=== PATIENT | female | born 1995 | race Caucasian/White ===

== ENCOUNTER 2016-11-18 09:28 | Emergency (ER) | payer MEDICAID ==
[~2016-11-18] VITALS: Ht 162.6 cm; Wt 56.8 kg
[2016-11-18] MEDS ORDERED: DEXAMETHASONE SOD PHOS 4 MG/ML VIAL IM ONE (11:00)
[2016-11-18 11:20] VITALS: BP 114/82
== END 2016-11-18 11:37 | disposition home or self-care (01) ==
LOC: EMS 09:33
DX: L29.9 Pruritus, unspecified (principal); L23.9 Allergic contact dermatitis, unspecified cause
CPT/HCPCS: 81025; 96372; 99283; J1100